=== PATIENT | female | born 1930 | race Caucasian/White ===

== ENCOUNTER → 2016-07-05 | Outpatient (CLI) | payer MEDICARE, BC ==
[~2016-07-05] MED LIST: ALTACE PO; ALTACE10 MG PO; ANTIVERT PO; ARICEPT PO; ASPIRIN EC81 M1 PO; AVANDIA; CADUET 10 MG/201 TAB; CADUET 5 MG/201 TAB PO; CORDARONE200 M1 PO; HYDRALAZINE HCL50 MG PO; ISOSORBIDE MONO20 M1 PO; LIPITOR PO; LIPITOR20 MG PO; LOPRESSOR PO; MELATONIN3 M4 PO; METFORMIN PO; MIDAMOR; MIDAMOR5 MG PO; NORVASC PO; NORVASC10 MG PO; PREDNISONE PO; PROTONIX PO; TOPROL XL PO; ULTRAM PO; ZANTAC300 MG PO
--- NOTE | ~2016-07-05 | CR230 ---
[facility] A Service of [facility] / [facility] RADIOLOGY TEXT RESULTS PATIENT: FRANCISCO BACK LOCATION: [facility] : 30 UNIT #: [id number] AGE: [address]: ELADIA MCLAUGHLIN SEX: F ORDER DR: [id number] [facility] [address]. [place], [place] [address] [id number] O MR#: [id number] Acc #: [id number] NAME: FRANCISCO BACK. : 1930 SEX: F STUDY DATE/TIME: 07/05/2016 12:21 UNIT: [facility] ROOM: STUDY DESCRIPTION: CR Shoulder Min 2 View Rt Attending Physician: Torsten Kebede Ordering Physician: Alma Martinez M.D. MEDICAL IMAGING REPORT This report is preliminary unless electronic signature is present EXAM Right shoulder, 07/05 at 12:21 INDICATION Shoulder pain for the last 4 weeks after a fall. FINDINGS 3 views of the right shoulder were obtained. 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 This is better seen on the patient's previous chest x-ray. The patient is osteopenic. 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 No glenohumeral dislocation. There is an old fracture of the proximal humerus. This is stable in appearance from the patient's recent chest x-ray. The acute fracture is visible on radiographs from 11/30/2006. IMPRESSION No acute fracture or dislocation. Patient is osteopenic. There is an old proximal humerus fracture. Dictated by... Kenneth Moncada Jr., M.D. THIS IS AN ELECTRONICALLY VERIFIED REPORT Kenneth Moncada Jr., M.D. at 07/06/2016 9:58 PM DORON/aleksandr TD: 07/06/2016 09:57 JOB #: [id number] MEDICAL IMAGING REPORT COPY
== END | disposition home or self-care (01) ==
LOC: CRAD 11:29
DX: M25.511 Pain in right shoulder (principal); M85.811 Other specified disorders of bone density and structure, right shoulder
CPT/HCPCS: 73030